=== PATIENT | male | born 1965 | race Asian ===

== ENCOUNTER → 2024-05-08 14:23 | Outpatient (REF) | payer OTHER, SELFPAY | LOC: RAD 14:23 | PROVIDERS: ATTENDING PHYSICIAN Internal Medicine | DX: Z87.891 Personal history of nicotine dependence (principal) | CPT/HCPCS: 71271 ==

== ENCOUNTER → 2025-08-02 14:50 | Outpatient (REF) | payer OTHER, SELFPAY | LOC: HWRAD 14:50 | PROVIDERS: ATTENDING PHYSICIAN Internal Medicine | DX: Z87.891 Personal history of nicotine dependence (principal) | CPT/HCPCS: 71271 ==